=== PATIENT | female | born 1995 | race Two or more races ===

== ENCOUNTER 2021-07-02 22:16 | Emergency (ER) | payer MEDICAID ==
[~2021-07-02] VITALS: Ht 167.6 cm; Wt 65.8 kg
[2021-07-02 22:55] VITALS: BP 129/77
--- NOTE | 2021-07-02 22:59 | NUR ---
Patient discharged to home in stable condition. Written and verbal after care instructions given. Patient verbalizes understanding of instruction.
== END 2021-07-02 23:03 | disposition home or self-care (01) ==
LOC: ER 22:39
DX: J06.9 Acute upper respiratory infection, unspecified (principal)